=== PATIENT | female | born 1950 | race Caucasian/White ===

== ENCOUNTER → 2016-05-25 | Outpatient (CLI) | payer OTHER, MEDICARE ==
[~2016-05-25] VITALS: Ht 165.1 cm; Wt 90.7 kg
[~2016-05-25] MED LIST: BENADRYL25 MG PO; BUPROBAN150 MG PO; BUPROPION XL300 MG PO; CALCIUM 600 +1 EAC1 PO; CALCIUM PO; COQ-10100 MG PO; CYCLOBENZAPRINE10 MG PO; FLEXERIL PO; HYDROCODON-ACE1 EAC5 PO; KAOPECTATE; LEVOTHYROXIN0.025 MG PO; LEVOTHYROXINE0.05 MG PO; LOPRESSOR25 PO; LOPRESSOR50 PO; MELATONIN10 M1 PO; MELOXICAM7.5 MG PO; METHADONE HCL 110 M1 PO; METHADONE HCL5 MG PO; MUCINEX DM ER1 EACH; NEURONTIN 300300 M1 PO; NORCO 10-325 T1 EACH PO; TRAMADOL 50 MG50 MG PO; VITAMIN B; VITAMIN C; VITAMIN D; VITAMIN D1000 UNI1 PO; WELLBUTRIN SR150 MG PO; XANAX1 MG PO; ZOCOR 10 MG TAB10 MG PO
--- NOTE | ~2016-05-25 | HPC ---
[facility] [address] [place] [address] PAIN MANAGEMENT CONSULTATION Name: EBONY FUENTES Room #: REG FRANCISCO Josse#: [id number] Admission: 05/25/16 Attend Phys: Serafin Leone MD Discharge: Date of : 46 Report #: [id number] THIS REPORT FOR: //name// CC: Serafin Holguin DATE OF SERVICE: 05/25/2016 Followup visit for medication management of chronic intractable pain. The patient returns to pain clinic today for followup on her medication. She has back pain mostly without radiculopathy. Pain today is reported as a 7 aching, throbbing, cramping, tenderness across her back and radiating into her legs. She has pain also in her left foot where she wears an orthotic. She has had ankle surgeries in 2008 and 2012. She has had 6 hip surgeries and also has ongoing chronic back pain related antalgic features of her back. She has decided that she would like to transition off of methadone. We talked about resuming a short-acting opioid and she is open to that. Instead of methadone 10 mg twice a day, I suggested that we go to [place] 10/325 one tablet q. 6 hours as needed with a goal of around 3-4 tablets a day and I have given her 100 tablets with refill and prescriptions in 4 and 8 weeks. This will be a morphine milligram equivalent dose of roughly 35 well below the 90 mg CDC guideline. She denies any significant side effects, is grateful for the pain relief that she gets from medication. In transitioning off the methadone, she hopes she will get rid of one side effect that she really bothers hot flashes. I am not sure if this is going to be improved, but we will find out. Other comorbidities include irritable bowel, ulcerative colitis, frequent diarrhea and fibromyalgia with insomnia. PHYSICAL EXAMINATION: GENERAL: She is pleasant. VITAL SIGNS: Blood pressure 138/71, heart rate 70, respirations 18. BMI is 33.3. She is able to move from sitting to standing position. MUSCULOSKELETAL: She walks with antalgic features with her ankle braces. She has tenderness across her low back in multiple myofascial tender points. She has some pain with flexion and extension of the spine. Straight leg raising is negative. She has pain in the hips bilaterally. IMPRESSION: 1. Chronic intractable pain, multiple pain generators. 2. Management of high risk medication. [address] [address] PAIN MANAGEMENT CONSULTATION Name: EBONY FUENTES Room #: REG FRANCISCO CorreaRita#: [id number] Admission: 05/25/16 Attend Phys: Serafin Leone MD Discharge: Date of : 46 Report #: [id number] We reviewed the CDC guidelines and our opioid agreement. PLAN: Medications were provided in terms of that agreement. We will follow up in 3 months. By: [id number] Serafin Leone MD /mariela
[2016-05-25 15:08] VITALS: BP 138/71
== END | disposition home or self-care (01) ==
LOC: PAIN 07:11
DX: G89.29 Other chronic pain (principal); G47.00 Insomnia, unspecified; M79.1 Myalgia; F11.20 Opioid dependence, uncomplicated; Z98.890 Other specified postprocedural states

== ENCOUNTER → 2016-08-28 | Outpatient (CLI) | payer OTHER, MEDICARE ==
[~2016-08-28] VITALS: Ht 160 cm; Wt 90.1 kg
[~2016-08-28] MED LIST changes: +BUTRANS1 EAC1 TD
[2016-08-28 12:59] VITALS: BP 138/67
== END | disposition home or self-care (01) ==
LOC: PAIN 06:46
DX: M47.899 Other spondylosis, site unspecified (principal); M79.604 Pain in right leg; Z98.890 Other specified postprocedural states; G89.29 Other chronic pain

== ENCOUNTER 2019-09-18 19:52 | Emergency (ER) | payer OTHER, MEDICARE ==
[~2019-09-18] VITALS: Ht 167.6 cm; Wt 93.0 kg
[2019-09-18 20:50] LABS: ABSOLUTE NEUTROPHILS 2.5 thou/uL (1.4-8.2); BASOPHILS 0.9 % (0.0-2.0); EOSINOPHILS 2.1 % (0.0-3.0); HEMATOCRIT 35.7 % (37.0-47.0); HEMOGLOBIN 12.6 gm/dL (12.0-15.0); LYMPHOCYTES 28.4 % (24.0-44.0); MCH 32.9 pg (26.0-34.0); MCHC 35.4 g/dL (28.0-37.0); MCV 92.9 fL (80.0-100.0); MONOCYTES 9.9 % (1.0-8.0); PLATELET COUNT 293 thou/uL (150-400); POLYS 58.7 % (36.0-66.0); RBC 3.85 mil/uL (4.20-5.00); RDW 12.2 % (10.5-14.5); WBC 4.2 thou/uL (4.0-11.0)
[2019-09-18 20:54] LABS: ANION GAP 8 mmol/L (7-16); BUN 6 mg/dL (7-18); CALCIUM 9.6 mg/dL (8.5-10.1); CHLORIDE 101 mmol/L (98-107); CO2 28 mmol/L (21-32); CREATININE 1.2 mg/dL (0.6-1.0); GLUCOSE 113 mg/dL (74-106); POTASSIUM 3.5 mmol/L (3.5-5.1); SODIUM 137 mmol/L (136-145)
[2019-09-18] MEDS ORDERED: LOMOTIL TABLET1 EACH PO (20:54)
[2019-09-18] MEDS ORDERED: OXYCODONE-ACET1 EACH PO (20:55)
[2019-09-18] MEDS ORDERED: NABUMETONE 750750 M1 PO (20:56)
[2019-09-18] MEDS ORDERED: TOPROL XL50 MG PO (20:56)
[2019-09-18] MEDS ORDERED: LEVO-T50 MCG PO (20:57)
[2019-09-18 21:00] LABS: DIRECT BILIRUBIN < 0.1 mg/dL (<0.1-0.2); SGOT 18 U/L (15-37); SGPT 21 U/L (30-65); TOTAL PROTEIN 7.2 g/dL (6.4-8.2)
[2019-09-18] MEDS ORDERED: BENTYL 20 MG TA20 M1 PO (22:28)
[2019-09-18 23:29] VITALS: BP 169/92
== END 2019-09-18 23:04 | disposition home or self-care (01) ==
LOC: ER 19:52
PROVIDERS: Emergency Medicine
DX: R19.7 Diarrhea, unspecified (principal); R10.9 Unspecified abdominal pain; Z88.1 Allergy status to other antibiotic agents; Z88.0 Allergy status to penicillin; Z88.2 Allergy status to sulfonamides; Z98.890 Other specified postprocedural states; Z98.51 Tubal ligation status; Z90.89 Acquired absence of other organs; Z79.899 Other long term (current) drug therapy